=== PATIENT | female | born 1985 | race Caucasian/White ===

== ENCOUNTER 2017-02-18 15:10 | Inpatient (IN) | payer OTHER ==
[2017-02-18] MEDS: DEXTROSE 5%-LACTATED RINGERS 1,000 ML IV SCH ×2 (15:40→18:57)
[2017-02-18 16:24] VITALS: BMI 28.3
[2017-02-18 16:34] LABS: BASOPHIL 0.6 % (0-2.0); EOSINOPHIL 0.5 % (0-4.5); MCH 31.2 pg (25.7-33.7); MCHC 33.5 g/dl (32.0-36.0); MEAN CELL VOLUME 93.1 fl (80-96); MEAN PLT VOLUME 8.5 fl (7.5-11.1); PLATELET COUNT 254 K/MM3 (134-434); RDW 13.1 % (11.6-15.6); WHITE BLOOD COUNT 10.6 K/mm3 (4.0-10.0)
--- NOTE | 2017-02-18 16:36 | HP ---
Past Medical History - Admission Chief Complaint: Labor pain History of Present Illness: 31 yo @ 39.6 weeks gestation, admitted for labor pain. Upon admission she was 5cm dilated. She denies any vaginal bleeding nor ROM. History Source: Patient Limitations to Obtaining History: No Limitations - Past Medical History ...: 4 ...Para: 3 ...Term: 2 ...: 1 ...Spon : 0 ...Induced : 0 ...Multiple Gestation: 0 ...LMP: 05/04/16 ... Weeks Gestation by Dates: 41.3 ...EDC by Dates: 02/08/17 ...EDC by Sono: 02/19/17 - Past Surgical History Past Surgical History: Yes: None Hx Myomectomy: No Hx Transabdominal Cerclage: No - Smoking History Smoking history: Never smoked Have you smoked in the past 12 months: No - Alcohol/Substance Use Hx Alcohol Use: No History of Substance Use: reports: None - Social History History of Recent Travel: No Home Medications - Allergies Allergies/Adverse Reactions: Allergies Allergy/AdvReac Type Severity Reaction Status Date / Time No Known Allergies Allergy Verified 12/31/16 14:51 - Home Medications Home Medications: Ambulatory Orders Ferrous Sulfate [Feosol] 325 mg PO DAILY 12/25/16 Vit/Iron Fumarate/FA [ Tablet] 1 each PO DAILY 12/25/16 Family Disease History - Family Disease History Family History: Unremarkable Review of Systems - Review of Systems Constitutional: reports: No Symptoms Eyes: reports: No Symptoms HENT: reports: No Symptoms Neck: reports: No Symptoms Cardiovascular: reports: No Symptoms Respiratory: reports: No Symptoms Gastrointestinal: reports: No Symptoms Genitourinary: reports: Pain Breasts: reports: No Symptoms Reported Musculoskeletal: reports: No Symptoms Integumentary: reports: No Symptoms Neurological: reports: No Symptoms Endocrine: reports: No Symptoms Hematology/Lymphatic: reports: No Symptoms Psychiatric: reports: No Symptoms Pain Intensity: 6 Physical Exam - Maternity Vital Signs: Vital Signs Temperature 97.8 F 02/18/17 15:20 Pulse Rate 80 02/18/17 15:20 Respiratory Rate 17 02/18/17 15:20 Blood Pressure 121/56 02/18/17 15:20 O2 Sat by Pulse Oximetry (%) Constitutional: Yes: Well Nourished Eyes: Yes: Conjunctiva Clear HENT: Yes: Atraumatic Neck: Yes: Supple Cardiovascular: Yes: Regular Rate and Rhythm Lungs: Clear to auscultation Breast(s): Yes: WNL - Abdominal Exam/OB Number of Fetuses: Single Presentation: Vertex Contractions: Yes Regularity: Irregular - Vaginal Exam/OB Vaginal Bleediing: No Dilatation (cm): 5 Effacement (%): 80 Amniotic Membrane Status: Intact Station: -2 - Physical Exam Musculoskeletal: Yes: WNL Extremities: Yes: WNL ...Motor Strength: WNL Psychiatric: Yes: Alert, Oriented Problem List - Problems (1) Pain during labor Code(s): O99.89 - OTH DISEASES AND CONDITIONS COMPL PREG/CHLDBRTH R52 - PAIN, UNSPECIFIED Assessment/Plan Active labor Analgesia as needed Anticipate
[2017-02-18 16:48] LABS: INR 0.96 (0.82-1.09); PROTHROMBIN TIME (PATIENT) 10.5 SEC (9.98-11.88)
[2017-02-18 16:51] LABS: ACTIVATED PTT 32.8 SECONDS (26.9-34.4)
[2017-02-18 17:10] LABS: ANION GAP 15 (8-16); CALCIUM 8.7 mg/dL (8.5-10.1); CO2 18 mmol/L (21-32); CREATININE 0.4 mg/dL (0.55-1.02); GLUCOSE,RANDOM 83 mg/dL (74-106)
[2017-02-18] MEDS: D5W-LR W/ 20 UNITS OXYTOCIN 1,000 ML IV SCH ×2 (18:15→19:35)
--- NOTE | 2017-02-18 18:40 | PN ---
Delivery - Delivery Vaginal Delivery: Spontaneous Type of Anesthesia: Local Episiotomy/Laceration: 3rd degree EBL (cc): 500 Delivery, Single - Feeding Plan Initial Plan: Exclusive throughout hospitalization Remarks - Remarks Remarks: Normal spontaneous vaginal delivery of a live girl over third degree laceration. Nose / Oropharynx suctioned @ perineum. Cord clamped and cut. Placenta expelled spontaneously intact. Laceration repaired with 2.0 Chromic.
[2017-02-18] MEDS ORDERED: BENZOCAINE 28 GM HEMORRHOIDAL OINTMENT TP PRN (18:42)
[2017-02-18] MEDS ORDERED: WITCH HAZEL 50% (TUCKS) 40 PAD/JAR PAD TP PRN (18:42)
[2017-02-18] MEDS ORDERED: BISACODYL 10 MG SUPP.RECT RC PRN (18:42)
[2017-02-18] MEDS ORDERED: BENZOCAINE 20% 57 GM BOTTLE TP PRN (18:42)
[2017-02-18] MEDS ORDERED: METHYLERGONOVINE MALEATE 0.2 MG/1 ML AMP IM PRN (18:42)
--- NOTE | 2017-02-18 18:46 | DS ---
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Motor Strength: WNL Psychiatric: Yes: Alert, Oriented Labs: CBC, BMP 02/18/17 15:44 02/18/17 15:55 Delivery - Delivery Vaginal Delivery: Spontaneous Type of Anesthesia: Local Episiotomy/Laceration: 3rd degree EBL (cc): 500 Delivery, Single - Feeding Plan Initial Plan: Exclusive throughout hospitalization Discharge Summary Reason For Visit: LABOR ADMIT Current Active Problems Pain during labor (Acute) Status post normal vaginal delivery (Acute) Procedures: Principal: Normal spontaneous vaginal delivery Hospital Course: Routine care Condition: Good - Instructions Diet, Activity, Other Instructions: Regular diet No douching, no sexual intecourse x 6 weeks Disposition: HOME - Home Medications Comprehensive Discharge Medication List: Ambulatory Orders Ferrous Sulfate [Feosol] 325 mg PO DAILY 12/25/16 Vit/Iron Fumarate/FA [ Tablet] 1 each PO DAILY 12/25/16
[2017-02-18] MEDS: IBUPROFEN 600 MG TABLET (FP) PO PRN ×2 (19:33→23:38)
[2017-02-18] MEDS ORDERED: DIPHTH,PERTUSS(ACELL),TET 0.5 ML DISP.SYRIN IM ONE (23:30)
[2017-02-18] MEDS: ACETAMINOPHEN 325 MG TABLET (FP) PO PRN (23:38)
[2017-02-19] MEDS: FERROUS SO4 325 MG TABLET (FP) PO SCH ×3 (08:00→17:39)
[2017-02-19 08:37] LABS: BASOPHIL 0.4 % (0-2.0); EOSINOPHIL 0.6 % (0-4.5); MCHC 34.1 g/dl (32.0-36.0); MEAN CELL VOLUME 93.8 fl (80-96); MEAN PLT VOLUME 7.8 fl (7.5-11.1); NEUTROPHILS 81.1 % (42.8-82.8); PLATELET COUNT 213 K/MM3 (134-434); RDW 13.4 % (11.6-15.6); WHITE BLOOD COUNT 11.6 K/mm3 (4.0-10.0)
[2017-02-19] MEDS: ACETAMINOPHEN 325 MG TABLET (FP) PO PRN ×2 (09:04→17:49)
[2017-02-19] MEDS: IBUPROFEN 600 MG TABLET (FP) PO PRN ×2 (09:05→17:48)
[2017-02-19] MEDS: PRENATAL VITAMINS W/ FOLIC ACID TABLET (FP) PO SCH (10:57)
--- NOTE | 2017-02-19 15:51 | PN ---
Post Progress Note - Subjective Subjective: 31 yo Para 4 status post normal vaginal delivery, seen and evaluated. Doing well Post Day: 1 Type of Delivery: Vital Signs: Vital Signs Temperature 97.8 F 02/19/17 10:00 Pulse Rate 63 02/19/17 10:00 Respiratory Rate 18 02/19/17 10:00 Blood Pressure 106/61 02/19/17 10:00 O2 Sat by Pulse Oximetry (%) 98 02/18/17 19:40 Breast Exam: Yes: Soft Uterus: Yes: Fundus Firm Abdomen/GI: Yes: Abdomen soft, Tolerating PO Lochia: Yes: Rubra Lochia, amount: Moderate Extremities: Yes: Calves non-tender Perineum: Yes: Laceration Activity: Ambulating - Labs Labs: CBC WBC 11.6 K/mm3 (4.0-10.0) H 02/19/17 08:26 RBC 3.11 M/mm3 (3.60-5.2) L D 02/19/17 08:26 Hgb 9.9 GM/dL (10.7-15.3) L D 02/19/17 08:26 Hct 29.2 % (32.4-45.2) L D 02/19/17 08:26 MCV 93.8 fl (80-96) 02/19/17 08:26 MCHC 34.1 g/dl (32.0-36.0) 02/19/17 08:26 RDW 13.4 % (11.6-15.6) 02/19/17 08:26 Plt Count 213 K/MM3 (134-434) 02/19/17 08:26 MPV 7.8 fl (7.5-11.1) 02/19/17 08:26 Neutrophils % 81.1 % (42.8-82.8) 02/19/17 08:26 Lymphocytes % 12.4 % (8-40) 02/19/17 08:26 Monocytes % 5.5 % (3.8-10.2) 02/19/17 08:26 Eosinophils % 0.6 % (0-4.5) 02/19/17 08:26 Basophils % 0.4 % (0-2.0) 02/19/17 08:26 Problem List - Problems (1) Pain during labor Code(s): O99.89 - OTH DISEASES AND CONDITIONS COMPL PREG/CHLDBRTH R52 - PAIN, UNSPECIFIED Assessment/Plan Status post vaginal delivery Stable Continue care
[2017-02-19] MEDS: DEXTROSE 5%-LACTATED RINGERS 1,000 ML IV SCH ×2 (17:39)
[2017-02-19] MEDS ORDERED: SENNOSIDES/DOCUSATE COMBO (SENNA PLUS) TABLET (UD) PO PRN (22:00)
[2017-02-20] MEDS: IBUPROFEN 600 MG TABLET (FP) PO PRN (06:22)
--- NOTE | 2017-02-20 08:35 | PN ---
Progress Note (short form) - Note Progress Note: ppd 2 no c/o voids ok CBC, BMP 02/19/17 08:26 02/18/17 15:55 Last Vital Signs Temp Pulse Resp BP Pulse Ox 98.5 F 74 18 117/64 98 02/19/17 22:00 02/19/17 22:00 02/19/17 22:00 02/19/17 22:00 02/18/17 19:40 uterus firm, non tender, no cav lochia mild no calf tenderness plan d/c home, rtc 4 weeks, cont iron and vit
[2017-02-20] MEDS: FERROUS SO4 325 MG TABLET (FP) PO SCH (08:57)
[2017-02-20 09:05] VITALS: BP 104/76; PULSE 85; TEMP 98.2
[2017-02-20] MEDS: PRENATAL VITAMINS W/ FOLIC ACID TABLET (FP) PO SCH (10:37)
== END 2017-02-20 11:00 | disposition home or self-care (01) | DRG 542 ==
LOC: JDEL 15:10 → JLDR 15:20 → J3W 19:45
PROVIDERS: ADMIT Obstetrics & Gynecology; ATTEND Obstetrics & Gynecology
PROC: 10E0XZZ Delivery of Products of Conception, External Approach (ICD-10-PCS; principal; 2017-02-18)
PROC: 0DQR0ZZ Repair Anal Sphincter, Open Approach (ICD-10-PCS; 2017-02-18)
DX: O70.20 Third degree perineal laceration during delivery, unspecified (principal); Z3A.39 39 weeks gestation of pregnancy; Z37.0 Single live birth
CPT/HCPCS: 36415; 59409; 80048; 85025; 85610; 85730; 86593; 86850; 86900; 86901; 90715